=== PATIENT | female | born 1960 | race Caucasian/White ===

== ENCOUNTER 2022-04-03 09:32 | Day surgery (SDC) | payer BC ==
[2022-03-31 11:09] VITALS: BMI 25.8
[2022-04-03 10:07] VITALS: TEMP 97.9
[2022-04-03 12:21] VITALS: RESP 16
[2022-04-03 12:33] VITALS: BP 110/70; PULSE 70
== END 2022-04-03 12:50 | disposition home or self-care (01) ==
LOC: FASU-ENDO 09:32
PROVIDERS: ATTEND Internal Medicine Gastroenterology
PROC: 0DB68ZX Excision of Stomach, Via Natural or Artificial Opening Endoscopic, Diagnostic (ICD-10-PCS; 2022-04-03)
PROC: 0DB58ZX Excision of Esophagus, Via Natural or Artificial Opening Endoscopic, Diagnostic (ICD-10-PCS; 2022-04-03)
PROC: 0DB98ZX Excision of Duodenum, Via Natural or Artificial Opening Endoscopic, Diagnostic (ICD-10-PCS; principal; 2022-04-03 12:02)
DX: K29.50 Unspecified chronic gastritis without bleeding (principal); K21.00 Gastro-esophageal reflux disease with esophagitis, without bleeding
CPT/HCPCS: 88305-TC; 88342-TC

== ENCOUNTER 2023-12-03 09:24 | Day surgery (SDC) | payer BC ==
[2023-11-30 10:16] VITALS: BMI 28.1
[2023-12-03 13:10] VITALS: TEMP 97
[2023-12-03 13:16] VITALS: BP 145/61; PULSE 65; RESP 17
== END 2023-12-03 12:40 | disposition home or self-care (01) ==
LOC: FASU-ENDO 09:24
PROVIDERS: ATTEND Internal Medicine Gastroenterology
PROC: 0DJD8ZZ Inspection of Lower Intestinal Tract, Via Natural or Artificial Opening Endoscopic (ICD-10-PCS; principal; 2023-12-03 11:47)
DX: Z12.11 Encounter for screening for malignant neoplasm of colon (principal); R19.5 Other fecal abnormalities